=== PATIENT | female | born 1960 | race African-American/Black ===

== ENCOUNTER 2019-05-06 16:52 | Emergency (ER) | payer OTHER ==
[~2019-05-06] VITALS: Ht 170.2 cm; Wt 79.8 kg
[2019-05-06 17:29] LABS: ABSOLUTE NEUTROPHILS 2.4 thou/uL (1.4-8.2); BASOPHILS 0.7 % (0.0-2.0); EOSINOPHILS 1.2 % (0.0-3.0); HEMATOCRIT 43.8 % (37.0-47.0); HEMOGLOBIN 14.7 gm/dL (12.0-15.0); LYMPHOCYTES 43.8 % (24.0-44.0); MCH 31.1 pg (26.0-34.0); MCHC 33.5 g/dL (28.0-37.0); PLATELET COUNT 211 thou/uL (150-400); POLYS 46.3 % (36.0-66.0); RBC 4.71 mil/uL (4.20-5.00); RDW 12.8 % (10.5-14.5); WBC 5.2 thou/uL (4.0-11.0)
[2019-05-06 17:40] LABS: ANION GAP 5 mmol/L (7-16); BUN 15 mg/dL (7-18); CALCIUM 9.5 mg/dL (8.5-10.1); CHLORIDE 98 mmol/L (98-107); CO2 32 mmol/L (21-32); CREATININE 0.9 mg/dL (0.6-1.0); GLUCOSE 185 mg/dL (74-106); POTASSIUM 3.9 mmol/L (3.5-5.1); SODIUM 135 mmol/L (136-145)
[2019-05-06 17:55] LABS: APTT 27.5 Seconds (24.5-32.8); INR 1.1; PROTIME 10.9 Seconds (9.3-11.4)
[2019-05-06 17:59] LABS: ALBUMIN 4.3 g/dL (3.4-5.0); SGOT 19 U/L (15-37); SGPT 35 U/L (30-65); TOTAL BILIRUBIN 0.4 mg/dL (<0.1-1.0); TOTAL PROTEIN 8.3 g/dL (6.4-8.2); TROPONIN-I <0.06 ng/mL (<0.06)
[2019-05-06 18:26] LABS: AMP/METHAMP Negative (Negative); BARBITURATES Negative (Negative); BENZODIAZEPINES Negative (Negative); COCAINE Negative (Negative); METHADONE Negative (Negative); OPIATES Negative (Negative); PCP Negative (Negative)
[2019-05-06] MEDS ORDERED: IBUPROFEN 600600 M1 PO (18:52)
[2019-05-06] MEDS ORDERED: PROAIR HFA8.5 GM INH (18:52)
[2019-05-06] MEDS ORDERED: PREDNISONE 20 M20 MG PO (18:52)
[2019-05-06] MEDS ORDERED: METFORMIN HCL500 M3 PO (18:52)
[2019-05-06] MEDS ORDERED: COZAAR 25 MG TA25 M1 PO (18:52)
[2019-05-06 19:40] VITALS: BP 125/82
--- NOTE | 2019-05-09 08:06 | EKG ---
[facility] [place] [address] ELECTROCARDIOGRAM REPORT Name: PRINCE VARGAS Room #: DEP 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: ASHU : 1960 Requested By: Saurabh Davenport Order Number: [id number] MD: Jorje Peng Measurements Intervals [place] Rate: 78 P: 71 RI: 165 QRS: -45 QRSD: 82 T: 33 QT: 330 QTc: 376 Interpretive Statements Sinus rhythm Left anterior fascicular block Abnormal R-wave progression, late transition Left ventricular hypertrophy No previous ECG available for comparison Electronically Signed On 05-09-2019 8:04:53 CDT by Jorje Peng [email or web address] <ELECTRONICALLY SIGNED> By: Jorje Peng MD, FACC 03/16/20 0804 1702 170 Jorje Peng MD, [facility] /EPI
== END 2019-05-06 19:40 | disposition home or self-care (01) ==
LOC: ER 16:52
PROVIDERS: Emergency Medicine
DX: J40 Bronchitis, not specified as acute or chronic (principal); B34.9 Viral infection, unspecified; R42 Dizziness and giddiness; E11.9 Type 2 diabetes mellitus without complications; I10 Essential (primary) hypertension